=== PATIENT | male | born 1995 | race Caucasian/White ===

== ENCOUNTER 2020-04-15 12:38 | Emergency (ER) | payer SELFPAY ==
[2020-04-15 12:44] VITALS: BP 160/76; PULSE 84; RESP 16; TEMP 36.6; O2SAT 97; BMI 30.1
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
[2020-04-15 13:55] LABS: Basophils # 0.1 10^3/uL (0.0-0.1); Basophils % 0.3 %; Eosinophils # 0.1 10^3/uL (0.0-0.8); Eosinophils % 0.6 %; Hematocrit 46.7 % (42.0-52.0); Hemoglobin 15.6 g/dL (11.7-16.6); Lymphocytes # 3.2 10^3/uL (0.8-4.8); Lymphocytes % 20.2 %; Mean Corpuscular HGB Conc 33.4 g/dL (30.0-36.0); Mean Corpuscular Hemoglobin 30.2 pg (28.0-34.0); Mean Corpuscular Volume 90.5 fL (80-94); Monocytes # 1.2 10^3/uL (0.2-0.9); Monocytes % 7.4 %; Neutrophils # 11.34 10^3/uL (1.8-7.7); Nucleated Red Blood Cells % 0 %; Platelet Count 388 10^3/cmm (130-400); Red Blood Count 5.16 10^6/uL (4.1-5.3); Red Cell Distribution Width 12.9 % (12.1-15.1)
[2020-04-15 14:03] LABS: Add Urine Microscopic? NO
[2020-04-15 14:06] LABS: Bilirubin Urine Neg (Negative); Blood Urine Neg (Negative); Glucose Urine UA Norm (Normal); Ketones Urine Negative (Negative); Leukocyte Esterase Urine Negative (Negative); Nitrate Urine Negative (Negative); Protein Urine Neg (Negative); Specific Gravity, Urine 1.005 (1.005-1.030); Urine Appearance Clear (CLEAR); Urine Color Yellow (Yellow); Urobilinogen Urine Norm (Negative); pH Urine 6 (5-7)
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
[2020-04-15 14:48] VITALS: BP 127/76; PULSE 88; O2SAT 98
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
--- NOTE | 2020-04-18 13:24 | DCPLANNER ---
Patient had a follow up appointment scheduled for an outpatient MRI. Appointment has been cancelled, patient wants to see his primary care physician physician before he has MRI.
== END 2020-04-15 14:51 | disposition home or self-care (01) ==
PROVIDERS: Emergency Provider Family Medicine
DX: R93.0 Abnormal findings on diagnostic imaging of skull and head, not elsewhere classified (principal); V89.0XXA Person injured in unspecified motor-vehicle accident, nontraffic, initial encounter
CPT/HCPCS: 12345; 70450; 72040; 72072; 81003; 85025; 99281; 99283

== ENCOUNTER 2020-05-22 14:15 | Outpatient (CLI) | payer SELFPAY ==
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
== END 2020-05-22 14:16 | disposition home or self-care (01) ==
LOC: RAD 14:19
PROVIDERS: PCP Family Medicine; Visit Provider Family Medicine
DX: F55.3 Abuse of steroids or hormones (principal); N63.42 Unspecified lump in left breast, subareolar
CPT/HCPCS: 76642; 77066

== ENCOUNTER 2020-06-12 12:46 | Outpatient (CLI) | payer SELFPAY ==
--- NOTE | 2020-06-12 13:07 | US_ITS ---
WS: [id number] ULTRASOUND-GUIDED LEFT BREAST BIOPSY CLINICAL INFORMATION: ABNORMAL BREAST FINDING/ LUMP IN L BREAST COMPARISON: None. FINDINGS: The procedure including risks, benefits, and complications were discussed with the patient who agreed to proceed. Using sterile technique patient was prepped and draped in the usual sterile fashion. Aft er 1% lidocaine utilizing real-time ultrasound guidance 5 14-gauge cores were obtained of the left br east lesion at the 4 o'clock position. No titanium clip was placed. No immediate complications. Pathology demonstrates Breast, left, mass, biopsy: -Epithelial proliferation, stromal hyperplasia with periductal edema, consistent with gynecomastia. -No malignancy identified. -Immunohistochemical stains have been performed and are pending US/[place] [id number] IMPRESSION: 1. Uncomplicated ultrasound-guided left breast biopsy. 2. The pathology demonstrates benign gynecomastia. No malignancy identified. 3. Immunohistochemical stains are pending. 4. No follow-up imaging is required BI-RADS: 2-Benign FOLLOW UP: See Report
== END 2020-06-12 12:47 | disposition home or self-care (01) ==
LOC: RAD 12:48
PROVIDERS: PCP Family Medicine; Visit Provider Family Medicine
DX: N63.20 Unspecified lump in the left breast, unspecified quadrant (principal); N62 Hypertrophy of breast; R60.0 Localized edema
CPT/HCPCS: 19083; 88305

== ENCOUNTER 2021-12-01 10:09 | Emergency (ER) | payer OTHER, SELFPAY ==
[2021-12-01 10:15] VITALS: BP 137/77; PULSE 86; RESP 18; TEMP 36.6; O2SAT 98; BMI 29.3
--- NOTE | 2021-12-01 11:12 | ED_ITS ---
HPI - Head Injury General: Chief complaint: Head Injury Stated complaint: He hurt his head Time Seen by Provider: 12/01/21 10:12 Source: patient Mode of arrival: ambulatory History of Present Illness: 26-year-old male presents emergency room after a fall at home. He was standing cooking when he got lightheaded and then passed out he does not recall what happened he has about a 4 inch laceration over the superior portion of the occiput. No vomiting since the episode he is awake and alert. He does not recall very well what it happened. MD Complaint: head injury Onset (ago): hour(s) Mechanism of Injury: fall Place: home Loss of Consciousness: yes Location of injury: occipital Radiation: none Other Injuries: none Associated symptoms: Deny amnesia, confusion, nausea, neck pain, numbness, tingling, vertigo, visual changes, vomiting or weakness Review of Systems Const: Denies: fever(s), chills, body aches, change in appetite, fatigue or malaise ENMT: Denies: throat pain, ear or mastoid pain, nasal discharge or nasal congestion Card: Denies: chest pain, edema, dyspnea on exertion or orthopnea Resp: Denies: dyspnea, productive cough or non-productive cough GI: Denies: nausea or vomiting : Denies: flank pain, dysuria, urinary frequency or urinary urgency Musc: Denies: neck pain Skin/Breast: Denies: rash or pruritus Neuro: Denies: vertigo or confusion [facility] ED PFSH: Medical History (Updated 12/09/21 @ 00:01 by ) Gynecomastia Physical Exam Const: GENERAL APPEARANCE: cooperative and comfortable ORIENTATION/CONSCIOUSNESS: Yes awake, Yes oriented to person, Yes oriented to place and Yes oriented to time HENMT: COMMON NORMALS: normocephalic, hearing grossly normal bilaterally, external ears normal, EAC's normal, TM's normal bilaterally, Normal nasal mucous membranes and turbinates present, moist oral mucous membranes and oropharynx normal HEAD & SCALP: normocephalic NOSE: Normal nasal mucous membranes and turbinates present EXTERNAL EAR: Yes external ears normal EXTERNAL AUDITORY CANAL: EAC's normal TYMPANIC MEMBRANE: TM's normal bilaterally Eye: COMMON NORMALS: Equal, round and reactive pupils present, EOMs intact bilaterally, conjunctivae normal and no scleral icterus CONJUNCTIVA: Yes conjunctivae normal PUPIL: Yes Equal, round and reactive pupils present Neck/C-Spine: COMMON NORMALS: full ROM, no lymphadenopathy, supple and no JVD Lymph: LYMPHATIC: no lymphadenopathy noted and no lymphedema noted Resp: COMMON NORMALS: normal respiratory effort, No retractions, No use of accessory muscles and clear to auscultation bilaterally AUSCULTATION: clear to auscultation bilaterally Cardio: COMMON NORMALS: no JVD, regular rate, regular rhythm and No murmurs pr esent (Cardio) RATE: regular rate RHYTHM: regular rhythm GI: COMMON NORMALS: Soft to palpation and No hepatosplenomegaly present AUSCULTATION: Yes normoactive bowel sounds PALPATION: Yes Soft to palpation, No Tenderness to palpation present (GI), No Guarding due to palpation present (GI) and Yes No hepatosplenomegaly present Extremity: COMMON NORMALS: normal to inspection, capillary refill normal, no clubbing, cyanosis or edema, no calf tenderness and no pedal edema Neuro: SENSORIUM/ORIENTATION: Yes oriented to person, Yes oriented to place and Yes oriented to time Skin: COMMON NORMALS: no rashes or lesions noted GENERAL SKIN EXAM: no rashes or lesions noted Procedures Laceration Laceration 1: Site: scalp Size (cm): 7 Description: linear Depth: simple, single layer Pre-repair: irrigated extensively Skin layer closed with: other ([place]) Course Vital Signs: Vital signs: Vital Signs Temperature 97.8 F 12/01/21 10:15 Pulse Rate 68 12/01/21 13:49 Respiratory Rate 18 12/01/21 10:15 Blood Pressure 138/70 12/01/21 13:49 Pulse Oximetry 98 12/01/21 10:15 MDM - Head Injury Medcial Decision Making Patient admits to several years of use of anabolic steroids. Labs and imaging reviewed discussed the patient. Tablets removed by primary care in 7 to 10 days. We will set up outpatient echocardiogram and 48-hour Holter monitor. He does have polycythemia and course of discussion he is wanting to have that fabien ated but does not want to change his use of anabolic steroids. Discussed with the patient that primary recommendation would be to stop using anabolic steroids this could certainly could contribute to the event he had today. He is also be evaluated for sleep apnea. Other potential problems anabolic steroids and include cardiomyopathies and arrhythmias which could have also contributed to the episode today. While here in the emergency room he did not have any arrhythmias while he was being monitored we will get a 48-hour Holter and echo follow-up with his primary care Medical Records I reviewed the patient's medical records. Lab Data I reviewed the patient's lab results. : 12/01/21 11:33 12/01/21 11:[address] 12/01/21 11:14 IMPRESSION: 1. No acute intracranial hemorrhage or edema. 2. Scalp laceration with vaughn along the posterior occiput. Cervical Spine CT 12/01/21 11:25 IMPRESSION: Normal cervical spine. Laboratory Results WBC 16.0 10^3/uL (4.0-10.0) H 12/01/21 11:33 RBC 5.98 10^6/uL (4.1-5.3) H 12/01/21 11:33 Hgb 18.0 g/dL (11.7-16.6) H 12/01/21 11:33 Hct 54.3 % (42.0-52.0) H 12/01/21 11:33 MCV 90.8 fl (80-94) 12/01/21 11:33 MCH 30.1 pg (28.0-34.0) 12/01/21 11:33 MCHC 33.1 g/dL (30.0-36.0) 12/01/21 11:33 RDW 13.1 % (12.1-15.1) 12/01/21 11:33 Plt Count 290 10^3/cmm (130-400) 12/01/21 11:33 MPV 10.3 fL (7.4-10.4) 12/01/21 11:33 Neut % (Auto) 78.7 % 12/01/21 11:33 Lymph % (Auto) 12.0 % 12/01/21 11:33 [place] % (Auto) 7.4 % 12/01/21 11:33 Eos % (Auto) 1.1 % 12/01/21 11:33 Baso % (Auto) 0.4 % 12/01/21 11:33 Neut # (Auto) 12.56 10^3/uL (1.8-7.7) H 12/01/21 11:33 Lymph # (Auto) 1.9 10^3/uL (0.8-4.8) 12/01/21 11:33 [place] # (Auto) 1.2 10^3/uL (0.2-0.9) H 12/01/21 11:33 Eos # (Auto) 0.2 10^3/uL (0.0-0.8) 12/01/21 11:33 Baso # (Auto) 0.1 10^3/uL (0.0-0.1) 12/01/21 11:33 Nucleated RBC % (auto) 0 % 12/01/21 11:33 Nucleated RBCs # 0.0 /100WBC 12/01/21 11:33 Sodium 134 mmol/L (136-145) L 12/01/21 11:33 Potassium 4.0 mmol/L (3.5-5.1) 12/01/21 11:33 Chloride 96 mmol/L (98-107) L 12/01/21 11:33 Carbon Dioxide 28 mmol/L (22-29) 12/01/21 11:33 Anion Gap 14.0 (5-19) 12/01/21 11:33 BUN 14 mg/dL (6-20) 12/01/21 11:33 Creatinine 1.0 mg/dL (0.7-1.2) 12/01/21 11:33 GFR Calculation 89.0 mL/min (90-130) L 12/01/21 11:33 Glucose 86 mg/dL (65-115) 12/01/21 11:33 Calculated Osmolality 278 mOsm/kg (285-295) L 12/01/21 11:33 Calcium 10.0 mg/dL (8.5-10.5) 12/01/21 11:33 Total Bilirubin 0.6 mg/dL (0.15-1.2) 12/01/21 11:33 AST 35 U/L (0-40) 12/01/21 11:33 ALT 39 U/L (0-41) 12/01/21 11:33 Alkaline Phosphatase 104 U/L (40-130) 12/01/21 11:33 Total Protein 8.5 g/dL (6.6-8.7) 12/01/21 11:33 Albumin 4.7 g/dL (3.5-5.2) 12/01/21 11:33 Globulin 3.8 g/dL (1.3-4.6) 12/01/21 11:33 Discharge Plan Discharge Patient Disposition: Home Clinical Impression: Closed head injury, Laceration of head, Syncope, Anabolic steroid abuse, Polycythemia Condition: Stable Prescriptions: No Action isotretinoin [Myorisan] 40 mg capsule 40 mg PO BID Vitamin D3 25 mcg (1,000 unit) Capsule 25 mcg PO DAILY vitamin K2 45 mcg Capsule 45 mcg PO DAILY Kidney Support Vit 1 tab PO TID Liver Support Vit 1 tab PO QID Discharge Orders: Discharge ED (Routine); Ordered 12/01/21 Ordered By: Carl Floyd Referrals: Carl Ward MD [Primary Care Provider] - Patient Instructions: Scalp Laceration, Staple Care (ED), Opioid Safety, Pain Management Activity Restrictions/Additional Instructions: Case management will call and make arrangements for her to have an outpatient echocardiogram and 48-hour Holter monitor follow-up with your primary care provider. 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
--- NOTE | 2021-12-01 11:14 | CT_ITS ---
WS: [id number] CT HEAD NONCONTRAST HISTORY: closed head injury TECHNIQUE: Contiguous axial imaging performed through the brain in 2.5 mm imaging. Bone and soft tiss ue windows. Sagittal and coronal reformats reviewed. All CT scans at [facility] use at least one of these dose optimization techniques: automated exposure control; mA and/or kV adjustment per pa tient size (includes targeted exams where dose is matched to clinical indication); or iterative recon struction. DLP: 1447.18 mGy.cm COMPARISON: 04/15/2020 No acute intracranial hemorrhage, midline shift or mass effect. No atrophy or prior infarcts or herniation. Ventricles: Normal size with no hydrocephalus. No inferior displacement of cerebellar tonsils. Paranasal sinuses: As visualized are clear. Mastoid air cells: Well pneumatized. Calvarium and scalp: No skull fracture. Scalp laceration with vaughn along the posterior midline ove r the occipital bone. CT/CT head wo con* [id number] IMPRESSION: 1. No acute intracranial hemorrhage or edema. 2. Scalp laceration with vaughn along the posterior occiput.
--- NOTE | 2021-12-01 11:25 | CT_ITS ---
WS: [id number] CT CERVICAL SPINE HISTORY: fall TECHNIQUE: Contiguous 2.5 mm axial imaging performed through the entire cervical spine. Sagittal and coronal reformats also performed. All CT scans at [facility] use at least one of these dose o ptimization techniques: automated exposure control; mA and/or kV adjustment per patient size (include s targeted exams where dose is matched to clinical indication); or iterative reconstruction. DLP: 1447.18 mGy.cm COMPARISON: 04/17/2016 Normal cervical alignment. Craniocervical junction, atlantodental interval and C1-C2 alignment is nor mal. No central or foraminal stenosis. The alignment remains normal. Facet joints are normal. Soft t issues are normal. Subpleural nodule is stable since [address]/CT cervical spin wo con* [id number] IMPRESSION: Normal cervical spine.
[2021-12-01 11:44] LABS: Basophils # 0.1 10^3/uL (0.0-0.1); Basophils % 0.4 %; Eosinophils # 0.2 10^3/uL (0.0-0.8); Eosinophils % 1.1 %; Hematocrit 54.3 % (42.0-52.0); Lymphocytes # 1.9 10^3/uL (0.8-4.8); Mean Corpuscular HGB Conc 33.1 g/dL (30.0-36.0); Mean Corpuscular Hemoglobin 30.1 pg (28.0-34.0); Mean Corpuscular Volume 90.8 fl (80-94); Mean Platelet Volume 10.3 fL (7.4-10.4); Monocytes # 1.2 10^3/uL (0.2-0.9); Monocytes % 7.4 %; Neutrophils # 12.56 10^3/uL (1.8-7.7); Neutrophils % 78.7 %; Nucleated Red Blood Cells % 0 %; Platelet Count 290 10^3/cmm (130-400); Red Blood Count 5.98 10^6/uL (4.1-5.3); Red Cell Distribution Width 13.1 % (12.1-15.1)
[2021-12-01] MEDS: lactated ringers 1,000 ML 999 ML IV (12:04)
[2021-12-01 12:12] LABS: Alanine Aminotransferase 39 U/L (0-41); Albumin Level 4.7 g/dL (3.5-5.2); Alkaline Phosphatase 104 U/L (40-130); Aspartate Amino Transferase 35 U/L (0-40); Blood Urea Nitrogen 14 mg/dL (6-20); Carbon Dioxide 28 mmol/L (22-29); Chloride 96 mmol/L (98-107); Globulin 3.8 g/dL (1.3-4.6); Glucose 86 mg/dL (65-115); Osmolality Calculated 278 mOsm/kg (285-295); Sodium 134 mmol/L (136-145); Total Bilirubin 0.6 mg/dL (0.15-1.2); Total Protein 8.5 g/dL (6.6-8.7)
[2021-12-01 13:07] VITALS: BP 124/70; BP 138/84; BP 146/82; PULSE 63; PULSE 67; PULSE 68
[2021-12-01] MEDS: tetanus-dipt-pertussis 0.5 mL SDV IM (13:13)
[2021-12-01 13:18] VITALS: BP 134/72; PULSE 68
[2021-12-01 13:49] VITALS: BP 138/70; PULSE 68
--- NOTE | 2021-12-02 14:45 | DCPLANNER ---
Addendum entered by Faiza Garcia 03/16/22 13:36: Patient had an outpatient echo scheduled - patient did attend appointment Patient had a follow up appointment scheduled with heart care for a monitor - patient did attend appointment. Addendum entered by Faiza Garcia 12/03/21 11:28: Patient has a follow up appointment scheduled for December at 11:30 at heart [facility] for a 48 hour halter. Clinic will call patient with appointment information. Original Note: logistics center manager had message to schedule a follow up appointment for patient with heart care for a 48 hour halter monitor. logistics center manager faxed signed order to [facility], who will call patient with appointment information. logistics center manager had message to schedule an outpatient echo cardiogram for patient. logistics center manager faxed signed order to centralized scheduling, who will call patient with appointment information. logistics center manager called patient, to confirm that patient wanted the test ordered and to confirm who patient sees for primary care. Patient stated that he sees Dr. Ward at [facility]. logistics center manager also sent patients primary care physician notification that the ER physician ordered a 48 hour halter monitor and an echo for patient.
== END 2021-12-01 13:51 | disposition home or self-care (01) ==
PROVIDERS: Emergency Provider Family Medicine; PCP Family Medicine
DX: S01.01XA Laceration without foreign body of scalp, initial encounter (principal); W19.XXXA Unspecified fall, initial encounter; R55 Syncope and collapse; F55.3 Abuse of steroids or hormones; D75.1 Secondary polycythemia; Z23 Encounter for immunization
CPT/HCPCS: 12002; 36415; 70450; 72125; 80053; 85025; 90471; 90715; 99285

== ENCOUNTER 2022-01-12 12:56 | Outpatient (CLI) | payer OTHER, SELFPAY ==
--- NOTE | 2022-01-12 13:25 | USCV_ITS ---
Cyndie, Mary Age: 26 Gender: M : 1995 Exam Date: 01/12/2022 13:50 Ordering Phys: Carl Floyd DO Technologist: Santo Cole [place] [facility] [place]: syncopal episode BP: 138 / 70 HR: 77 Rhythm: Sinus Technical Quality: Adequate MEASUREMENTS (Male / Female) Normal Values 2D ECHO LV Diastolic Diameter PLAX 5.5 cm 4.2 - 5.9 / 3.9 - 5.3 cm LV Systolic Diameter PLAX 3.6 cm IVS Diastolic Thickness 0.8 cm 0.6 - 1.0 / 0.6 - 0.9 cm IVS Systolic Thickness 1.1 cm LVPW Diastolic Thickness 0.7 cm 0.6 - 1.0 / 0.6 - 0.9 cm LVPW Systolic Thickness 1.3 cm LVOT Diameter 2.0 cm LV Ejection Fraction 2D Teich 61.0 % LV Ejection Fraction MOD 2C 60.2 % LV Ejection Fraction 2C AL 59.2 % LA Diameter 3.4 cm LA Width 3.0 cm LA Height 3.6 cm RA Width 4.1 cm RA Height 4.6 cm Aorta at Sinotubular Diameter 2.4 cm IVC Diameter 1.6 cm M-MODE Aortic Annulus Diameter 3.1 cm LA Ao Ratio MM 1.1 MV E Point Septal Separation 0.6 cm DOPPLER AV Peak Velocity 112.0 cm/s LVOT Peak Velocity 97.0 cm/s AV Area Cont Eq vti 2.5 cm squared AV Area Cont Eq pk 2.8 cm squared MV Peak Velocity 97.0 cm/s MV Area PHT 5.0 cm squared Mitral E to A Ratio 1.5 MV E' Velocity 52.5 cm/s Mitral E to MV E' Ratio 5.9 Mitral E to LV E' Lateral Ratio 5.1 Mitral E to LV E' Septal Ratio 7.2 TR Peak Velocity 258.1 cm/s TR Peak Gradient 26.6 mmHg TR Mean Velocity 187.0 cm/s TR Mean Gradient 14.8 mmHg TR Velocity Time Integral 59.2 cm Right Atrial Pressure 3.0 mmHg Pulmonary Artery Systolic Pressu 29.6 mmHg PV Peak Velocity 93.5 cm/s RV Acceleration Time 0.1 s RV Ejection Time 0.3 s RV AcT/ET 0.5 FINDINGS Left Ventricle Normal left ventricular size, systolic function and wall thickness, with no regional wall motion abnormalities. Left ventricular ejection fraction is estimated at 60 %. Normal diastolic function. Right Ventricle Normal right ventricular size and systolic function. RVSP could not be calculated due to incomplete tricuspid regurgitation velocity profile. Right Atrium Normal right atrial size. Left Atrium Normal left atrial size. Mitral Valve Mildly thickened mitral valve. No mitral valve stenosis. Trace mitral valve regurgitation. Aortic Valve Structurally normal trileaflet aortic valve. No aortic valve stenosis. No aortic valve regurgitation. Tricuspid Valve Structurally normal tricuspid valve. No tricuspid valve stenosis. Trace to mild tricuspid valve regurgitation. Pulmonic Valve Structurally normal pulmonic valve. No pulmonary valve stenosis. Trace pulmonary valve regurgitation. Pericardium No pericardial effusion. Aorta Normal size aortic root and proximal ascending aorta. IVC Normal IVC dimension with >50% respiratory change of the inferior vena cava. CONCLUSIONS 1. Normal left ventricular size, systolic function and wall thickness, with no regional wall motion abnormalities. Left ventricular ejection fraction is estimated at 60 %. Normal diastolic function. 2. Trace to mild tricuspid valve regurgitation. 3. No prior similar studies to compare. Emerald Werner MD (Electronically Signed) Final Date: 16 January 2022 19:42 S
== END 2022-01-12 12:57 | disposition home or self-care (01) ==
LOC: RAD 12:56
PROVIDERS: PCP Family Medicine; Visit Provider Family Medicine
DX: R55 Syncope and collapse (principal); I07.1 Rheumatic tricuspid insufficiency
CPT/HCPCS: 93306

== ENCOUNTER 2022-10-13 17:19 | Emergency (ER) | payer OTHER, SELFPAY ==
[2022-10-13 17:51] VITALS: BP 142/78; PULSE 80; RESP 18; TEMP 36.7; O2SAT 100
[2022-10-13 17:52] VITALS: BMI 29.3
--- NOTE | 2022-10-13 17:58 | ED_ITS ---
HPI - Animal Bite General: Chief Complaint: Animal Bite Stated Complaint: dog bite RT leg Time Seen by Provider: 10/13/22 17:46 Source: patient Mode of arrival: ambulatory Limitations: no limitations History of Present Illness: 27-year-old male states that he was bit by dog today. Bit him in his right lower leg he has puncture wounds no laceration he is unsure of the dog's rabies vaccination status. He has no bleeding at this time there is minimal pain. Denies any other injuries. Associated symptoms: Deny chills or fever(s) Review of Systems Const: Denies: fever(s) or chills ENMT: Denies: throat pain or dental pain Card: Denies: chest pain Resp: Denies: dyspnea GI: Denies: abdominal pain Musc: Reports: extremity pain; Denies: neck pain or back pain Skin/Breast: Denies: rash PFSH ED PFSH: Medical History Gynecomastia Social History Smoking and tobacco status: never smoked Alcohol intake: never Physical Exam Const: COMMON NORMALS: no acute distress and patient oriented x3 HENMT: COMMON NORMALS: normocephalic HEAD & SCALP: normocephalic Eye: COMMON NORMALS: conjunctivae normal CONJUNCTIVA: Yes conjunctivae normal Chest: COMMONS NORMALS: normal inspection of the chest Resp: COMMON NORMALS: normal respiratory effort Extremity: NARRATIVE EXTREMITY EXAM: dog bite to right lower leg no large laceration Neuro: COMMON NORMALS: patient oriented x3 Psych: COMMON NORMALS: mental status grossly normal Skin: COMMON NORMALS: no rashes or lesions noted GENERAL SKIN EXAM: no rashes or lesions noted Course Vital Signs: Vital signs: Vital Signs Temperature 98.0 F 10/13/22 17:51 Pulse Rate 80 10/13/22 17:51 Respiratory Rate 18 10/13/22 17:51 Blood Pressure 142/78 10/13/22 17:51 Pulse Oximetry 100 10/13/22 17:51 Oxygen Delivery Me thod Room Air 10/13/22 17:51 MDM - Animal Bite Medical Decision Making Patient presents here after dog bite he has no lacerations that need repaired superficial wounds did give him rabies vaccine will prescribe Augmentin for prophylaxis he is stable for discharge he is follow-up with PCP and return if worsening. Medical Records I reviewed the patient's medical records. Lab Data I reviewed the patient's lab results. 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
[2022-10-13] MEDS: rabies vaccine 2.5 unit SDV IM (18:36)
[2022-10-13] MEDS: tetanus-dipt-pertussis 0.5 mL SDV IM (18:38)
== END 2022-10-13 19:09 | disposition home or self-care (01) ==
PROVIDERS: Emergency Provider Emergency Medicine; PCP Family Medicine
DX: S81.851A Open bite, right lower leg, initial encounter (principal); Z23 Encounter for immunization; W54.0XXA Bitten by dog, initial encounter
CPT/HCPCS: 90375; 90471; 90675; 90715; 99283

== ENCOUNTER 2022-10-16 09:30 | Emergency (ER) | payer OTHER, SELFPAY ==
[2022-10-16 09:33] VITALS: BP 111/84; PULSE 92; RESP 15; TEMP 36.6; O2SAT 99
--- NOTE | 2022-10-16 09:45 | W.ED.GENADLT ---
HPI - General Adult General: Chief complaint: General Medical Stated complaint: second rabies vaccine Time Seen by Provider: 10/16/22 09:33 History of Present Illness: Patient is a 27-year-old male that presents to the emergency department for second injection in a rabies series. Patient sustained a dog bite to anterior aspect of the lower extremity. He was seen on 10/13/2022 and underwent postexposure prophylactic treatment as well as antibiotic treatment for a dog bite. Patient has not begun his home antibiotics. Today he is postexposure day 3 Patient denies any other complaints. Denies any apparent infectious process of the dog bite Associated symptoms: Deny chest pain, confusion, dyspnea, headache(s), malaise, nausea, rash, palpitations or vomiting Review of Systems General: Reports: 10 or more systems reviewed and unremarkable except in HPI and below Const: Denies: fever(s), chills, change in appetite, change in weight, fatigue or malaise Eyes: Denies: change in vision, eye discomfort, eye discharge or eye redness ENMT: Denies: throat pain, enlarged tonsils, odynophagia, hoarseness, ear or mastoid pain, ear discharge, change in hearing, tinnitus, nasal discharge, nasal congestion, post nasal drip or sinus pain Card: Denies: chest pain, palpitations, irregular heart rhythm, edema, dyspnea on exertion, orthopnea or leg pain with exertion Resp: Denies: dyspnea, productive cough, non-productive cough, wheezing, stridor or chest congestion GI: Denies: abdominal pain, nausea, vomiting, dysphagia, diarrhea, constipation, bloating, GI cramping or hematochezia : Denies: flank pain, dysuria, urinary frequency, urinary urgency, urinary hesitancy, oliguria or hematuria Musc: Denies: neck pain, back pain, extremity pain, joint pain, joint swelling, joint redness, joint warmth or muscle weakness Skin/Breast: Denies: rash, pruritus, erythema, photosensitivity or new lesions Neuro: Denies: headache(s), numbness in extremities, weakness in extremities, sensory changes, lack of coordination, difficulty walking, frequent falls, dizziness, confusion, Slurred speech present, difficulty communicating thoughts, seizure-like activity or involuntary movements Endo: Denies: polyuria, polydipsia or tired all the time Curt/Lymph: Denies: easy bruising or easy bleeding PFS ED PFSH: Medical History Gynecomastia Social History Smoking and tobacco status: never smoked Alcohol intake: never Physical Exam Const: COMMON NORMALS: no acute distress, patient oriented x3 and alert GENERAL APPEARANCE: cooperative ORIENTATION/CONSCIOUSNESS: Yes awake, Yes oriented to person, Yes oriented to place and Yes oriented to time HENMT: COMMON NORMALS: normocephalic and atraumatic HEAD & SCALP: normocephalic and atraumatic FACE & SINUS: normal facial exam MOUTH: Normal oral and palatal mucosa present THROAT: posterior oropharynx normal Eye: COMMON NORMALS: Equal, round and reactive pupils present, EOMs intact bilaterally, conjunctivae normal and no scleral icterus GENERAL EYE: appearance normal, both eyes and all related structures ALIGNMENT: Yes alignment normal PERIORBITAL: periorbital findings normal CONJUNCTIVA: Yes conjunctivae normal PUPIL: Yes Equal, round and reactive pupils present Neck/C-Spine: COMMON NORMALS: full ROM GENERAL: Yes normal visual inspection Lymph: LYMPHATIC: no lymphadenopathy noted Chest: COMMONS NORMALS: normal inspection of the chest Breast/axilla inspection: Yes no chest deformity, asymmetry, normal contours, no nodules, masses, tenderness Resp: COMMON NORMALS: normal respiratory effort, No retractions, No use of accessory muscles and clear to auscultation bilaterally EFFORT & INSPECTION: Yes able to speak in complete sentences and Yes symmetric chest movement AUSCULTATION: clear to auscultation bilaterally Cardio: COMMON NORMALS: regular rate, regular rhythm and Peripheral pulses 2+ throughout RATE: regular rate RHYTHM: regular rhythm PERIPHERAL PULSES: Peripheral pulses 2+ throughout GI: COMMON NORMALS: Normal to inspection, nondistended, normoactive bowel sounds present, Soft to palpation, non-tender and No hepatosplenomegaly present INSPECTION: Yes normal to inspection AUSCULTATION: Yes normoactive bowel sounds PALPATION: Yes Soft to palpation and Yes No hepatosplenomegaly present RECTAL EXAM: Yes deferred Extremity: COMMON NORMALS: normal to inspection GENERAL: Yes normal exam except as noted Neuro: COMMON NORMALS: patient oriented x3 SENSORIUM/ORIENTATION: Yes alert, Yes oriented to person, Yes oriented to place and Yes oriented to time CRANIAL NERVES: Yes CN normal except as noted Psych: COMMON NORMALS: mental status grossly normal, Normal thought process present, cooperative, activity/motor behavior normal, denies homicidal ideation and denies suicidal ideation THOUGHT PROCESS: Normal thought process present Skin: COMMON NORMALS: no rashes or lesions noted, no wounds and turgor normal GENERAL SKIN EXAM: no rashes or lesions noted and turgor normal Course Vital Signs: Vital signs: Vital Signs Temperature 97.8 F 10/16/22 09:33 Pulse Rate 92 10/16/22 09:33 Respiratory Rate 15 10/16/22 09:33 Blood Pressure 111/84 10/16/22 09:33 Pulse Oximetry 99 10/16/22 09:33 Oxygen Delivery Me thod Room Air 10/16/22 09:33 MDM - General Adult Medical Decision Making Patient is in the emergency department today for postexposure vaccine for rabies. Rabies vaccine given. He is due for his next injection on day 7 and day 14 10/20 and 10/27 Discharge Plan Discharge Patient Disposition: Home Clinical Impression: Dog bite, Vaccine counseling Condition: Stable Prescriptions: No Action isotretinoin [Accutane] 20 mg capsule 20 mg PO DAILY isotretinoin [Myorisan] 40 mg capsule 40 mg PO BID Augmentin 500-125 mg tablet 1 tab PO BID Qty: 14 0RF Discharge Orders: Discharge ED (Routine); Ordered 10/16/22 Ordered By: Azra Cardozo Referrals: Carl Ward MD [Primary Care Provider] - Discharge Diet: Advance as tolerated Discharge Activity: Resume usual activity Patient Instructions: Rabies Vaccine (By injection), Rabies (ED) Activity Restrictions/Additional Instructions: Please begin your antibiotics. Today was day 3?postexposure. 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
[2022-10-16] MEDS: rabies vaccine 2.5 unit SDV IM (09:57)
[2022-10-16 10:08] VITALS: BP 111/84; PULSE 92; RESP 15; O2SAT 99
== END 2022-10-16 10:09 | disposition home or self-care (01) ==
PROVIDERS: Emergency Provider Nurse Practitioner; PCP Family Medicine
DX: Z23 Encounter for immunization (principal); S81.852D Open bite, left lower leg, subsequent encounter; S81.851D Open bite, right lower leg, subsequent encounter; W54.0XXD Bitten by dog, subsequent encounter
CPT/HCPCS: 90471; 90675; 99283

== ENCOUNTER 2022-10-20 09:07 | Emergency (ER) | payer OTHER, SELFPAY ==
--- NOTE | 2022-10-20 09:23 | ED_ITS ---
HPI - General Adult General: Chief complaint: Animal Bite Stated complaint: 3rd rabies shot Time Seen by Provider: 10/20/22 09:08 Source: patient Mode of arrival: ambulatory Limitations: no limitations History of Present Illness: Patient is a 27-year-old male who presents to the emergency department for routine rabies vaccination. Patient was seen and evaluated in the emergency department on 10/13 following a dog bite to his right lower leg. He presents today for his third shot in the rabies vaccination series. He does not report any symptoms or adverse reactions to previous vaccinations. Dog bite is healing well. Associated symptoms: Reports no associated symptoms; Deny chest pain, dyspnea, headache(s), nausea, rash or vomiting Treatments prior to arrival: none Review of Systems General: Reports: 10 or more systems reviewed and unremarkable except in HPI and below Const: Denies: fever(s), chills or body aches Card: Denies: chest pain Resp: Denies: dyspnea GI: Denies: abdominal pain, nausea, vomiting or diarrhea Musc: Denies: neck pain, back pain, extremity pain or joint pain Skin/Breast: Denies: rash Neuro: Denies: headache(s), numbness in extremities, weakness in extremities, sensory changes or dizziness PFSH ED PFSH: Medical History Gynecomastia Social History Smoking and tobacco status: never smoked Alcohol intake: never Physical Exam Const: COMMON NORMALS: no acute distress, average body habitus, patient o riented x3, no limitations, healthy appearing, alert and well nourished GENERAL APPEARANCE: cooperative ORIENTATION/CONSCIOUSNESS: Yes awake, Yes oriented to person, Yes oriented to place and Yes oriented to time Resp: COMMON NORMALS: normal respiratory effort and clear to auscultation bilaterally AUSCULTATION: clear to auscultation bilaterally Cardio: COMMON NORMALS: regular rate and regular rhythm RATE: regular rate RHYTHM: regular rhythm Extremity: COMMON NORMALS: normal to inspection GENERAL: Yes normal exam except as noted Neuro: HELEN COMA SCALE: document GCS findings Helen coma scale eye opening: Spontaneous [place] coma scale verbal response: Orientated [place] coma scale motor response: Obey commands Helen coma scale total score: 15 COMMON NORMALS: patient oriented x3, moves all extremities, no focal motor deficits and no sensory deficits noted SENSORIUM/ORIENTATION: Yes alert, Yes oriented to person, Yes oriented to place and Yes oriented to time Skin: COMMON NORMALS: no rashes or lesions noted GENERAL SKIN EXAM: no rashes or lesions noted TRAUMA: no lacerations or abrasions Course Vital Signs: Vital signs: Vital Signs Temperature 97.8 F 10/20/22 09:28 Pulse Rate 80 10/20/22 09:28 Respiratory Rate 18 10/20/22 09:28 Blood Pressure 126/80 10/20/22 09:28 Pulse Oximetry 100 10/20/22 09:28 Oxygen Delivery Me thod Room Air 10/20/22 09:28 MDM - General Adult Medical Decision Making Patient is here for his day 7 rabies vaccination. This was administered. He is asymptomatic. He has not experienced any adverse reactions to previous vaccinations or immunoglobulin. Dog bite is healing well. Patient will be instructed to continue series until completion which should just be one additional vaccination at day 14. Discharge Plan Discharge Patient Disposition: Home Clinical Impression: Encounter for repeat administration of rabies vaccination Condition: Stable Prescriptions: No Action isotretinoin [Accutane] 20 mg capsule 20 mg PO DAILY isotretinoin [Myorisan] 40 mg capsule 40 mg PO BID Augmentin 500-125 mg tablet 1 tab PO BID Qty: 14 0RF Discharge Orders: Discharge ED (Routine); Ordered 10/20/22 Ordered By: Eleanor Amato Referrals: Carl Ward MD [Primary Care Provider] - Activity Restrictions/Additional Instructions: Continue to follow current rabies vaccination schedule. 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
[2022-10-20 09:28] VITALS: BP 126/80; PULSE 80; RESP 18; TEMP 36.6; O2SAT 100
[2022-10-20] MEDS: rabies vaccine 2.5 unit SDV IM (09:56)
== END 2022-10-20 10:01 | disposition home or self-care (01) ==
PROVIDERS: Emergency Provider Physician Assistant; PCP Family Medicine
DX: Z29.14 Encounter for prophylactic rabies immune globulin (principal)
CPT/HCPCS: 90471; 90675; 99283

== ENCOUNTER 2022-10-27 16:42 | Emergency (ER) | payer OTHER, SELFPAY ==
[2022-10-27 16:53] VITALS: BP 134/77; PULSE 57; RESP 14; TEMP 36.7; O2SAT 98
--- NOTE | 2022-10-27 17:03 | ED_ITS ---
HPI - General Adult General: Chief complaint: General Medical Stated complaint: 4th rabies shot Time Seen by Provider: 10/27/22 17:01 History of Present Illness: 27-year-old male patient comes in today for his fourth rabies vaccine shot. Patient denies any concerns. Patient reports well-healed wounds. Review of Systems General: Reports: 10 or more systems reviewed and unremarkable except in HPI and below PFSH ED PFSH: Medical History Gynecomastia Social History Smoking and tobacco status: never smoked Alcohol intake: never Physical Exam Const: COMMON NORMALS: alert HENMT: COMMON NORMALS: normocephalic HEAD & SCALP: normocephalic Neck/C-Spine: COMMON NORMALS: full ROM Resp: COMMON NORMALS: normal respiratory effort Cardio: COMMON NORMALS: regular rate RATE: regular rate Extremity: COMMON NORMALS: normal to inspection Neuro: SENSORIUM/ORIENTATION: Yes alert Course Vital Signs: Vital signs: Vital Signs Temperature 98.0 F 10/27/22 16:53 Pulse Rate 57 L 10/27/22 16:53 Respiratory Rate 14 10/27/22 16:53 Blood Pressure 134/77 10/27/22 16:53 Pulse Oximetry 98 10/27/22 16:53 Oxygen Delivery Me thod Room Air 10/27/22 16:53 MDM - General Adult Medical Decision Making Patient presents for his last rabies vaccination shot. Patient denies any complaints or concerns relating injuries sustained from a animal bite. Immunization was completed by nursing patient tolerated well. Differential diagnoses included wound infection, abscess, adverse immunization response. Discharge Plan Discharge Patient Disposition: Home Clinical Impression: Encounter for repeat administration of rabies vaccination Condition: Stable Prescriptions: No Action isotretinoin [Accutane] 20 mg capsule 20 mg PO DAILY isotretinoin [Myorisan] 40 mg capsule 40 mg PO BID Augmentin 500-125 mg tablet 1 tab PO BID Qty: 14 0RF Discharge Orders: Discharge ED (Routine); Ordered 10/27/22 Ordered By: Sam Marks Referrals: Carl Ward MD [Primary Care Provider] - Discharge Diet: Usual diet Discharge Activity: Increase activity as tolerated Patient Instructions: Rabies Vaccine (By injection) Activity Restrictions/Additional Instructions: Continue with routine care. Follow-up with primary care as needed. Return to ED for new concerns. 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
[2022-10-27] MEDS: rabies vaccine 2.5 unit SDV IM (17:18)
== END 2022-10-27 17:19 | disposition home or self-care (01) ==
PROVIDERS: Emergency Provider Nurse Practitioner Family; PCP Family Medicine
DX: Z29.14 Encounter for prophylactic rabies immune globulin (principal); Z20.3 Contact with and (suspected) exposure to rabies; Z23 Encounter for immunization
CPT/HCPCS: 90471; 90675; 99283

== ENCOUNTER 2023-07-08 11:26 | Outpatient (CLI) | payer OTHER, SELFPAY ==
--- NOTE | 2023-07-08 11:31 | XRR_ITS ---
PROCEDURE INFORMATION: Exam: XR Chest Exam date and time: 07/08/2023 11:36 AM Age: 27 years old Clinical indication: Cough with hemorrhage; Additional info: Hemoptysis TECHNIQUE: Imaging protocol: Radiologic exam of the chest. Views: 2 views. COMPARISON: CR XR chest 1V [id number] 01/12/2018 2:51 PM FINDINGS: Lungs: Unremarkable. No consolidation. Pleural spaces: Unremarkable. No pleural effusion. No pneumothorax. Heart/Mediastinum: Unremarkable. No cardiomegaly. Bones/joints: Unremarkable. XR/XR chest 2V* [id number] IMPRESSION: No acute findings.
== END 2023-07-08 11:27 | disposition home or self-care (01) ==
LOC: RAD 11:28
PROVIDERS: PCP Family Medicine; Visit Provider Family Medicine
DX: R04.2 Hemoptysis (principal)
CPT/HCPCS: 71046

== ENCOUNTER → 2024-01-31 09:18 | Outpatient (BNVA) | payer OTHER, SELFPAY | PROVIDERS: PCP Family Medicine | DX: N23 Unspecified renal colic (principal); N20.0 Calculus of kidney | CPT/HCPCS: 81000 ==

== ENCOUNTER 2024-02-15 09:00 | Outpatient (CLI) | payer OTHER, SELFPAY ==
--- NOTE | 2024-02-15 09:09 | US_ITS ---
WS: [id number] RENAL ULTRASOUND HISTORY: RENAL PAIN/OTHER MICROSCOPIC HEMATURIA COMPARISON: None available. TECHNIQUE: 2-D and color Doppler imaging of the kidney submitted. Right kidney: 11.4 cm x 5.3 cm x 5.7 cm. Cortex: 1.1 cm Normal echogenicity with no hydronephrosis or mass. Left kidney: 11.4 cm x 4.8 cm x 5.0 cm. Cortex: 1.1 cm Normal echogenicity with no hydronephrosis or mass. Aorta: Normal. Urinary Bladder: Nondistended. US/US renal BI* [id number] IMPRESSION: Normal renal ultrasound.
== END 2024-02-15 09:05 | disposition home or self-care (01) ==
PROVIDERS: PCP Family Medicine; Visit Provider Family Medicine
DX: N28.9 Disorder of kidney and ureter, unspecified (principal); R31.29 Other microscopic hematuria
CPT/HCPCS: 76770